=== PATIENT | female | born 1960 | race Two or more races ===

== ENCOUNTER 2019-03-10 07:21 | Emergency (ER) | payer MEDICAID ==
[~2019-03-10] VITALS: Ht 165.1 cm; Wt 105.7 kg
[2019-03-10 07:27] VITALS: BP 157/77; Ht 165.1 cm; Wt 105.7 kg
[2019-03-10 08:34] LABS: PLATELET COUNT 244 x10^3mcL (130-400); RED CELL DISTRIBUTION WIDTH 13.1 % (11.5-14.5)
[2019-03-10 08:35] LABS: BASOPHIL % 0.3 % (0-2)
[2019-03-10 08:48] LABS: CHLORIDE SERUM 104 mmol/L (98-107); POTASSIUM SERUM 4.6 mmol/L (3.5-5.1); SODIUM SERUM 140 mmol/L (136-145)
[2019-03-10 08:49] LABS: ALBUMIN 3.3 g/dL (3.4-5.0); ALKALINE PHOSPHATASE 80 U/L (46-116); ALT/SGPT 29 U/L (14-59); AST/SGOT 25 U/L (15-37); BILIRUBIN TOTAL 0.45 mg/dL (0.20-1.00); CALCIUM 8.7 mg/dL (8.5-10.1); CARBON DIOXIDE 28.4 mmol/L (21-32); CREATININE SERUM 0.7 mg/dL (0.6-1.0); GFR1 > 60 mL/min; GLUCOSE SERUM 108 mg/dL (74-106); LIPASE 118 IU/L (73-393); TOTAL PROTEIN, SERUM 6.8 g/dL (6.4-8.2)
[2019-03-12] MEDS ORDERED: ACID REDUCER20 MG PO (08:51)
== END 2019-03-10 09:55 | disposition home or self-care (01) ==
LOC: ED 07:21
PROVIDERS: Emergency Medicine
DX: K57.92 Diverticulitis of intestine, part unspecified, without perforation or abscess without bleeding (principal); J45.909 Unspecified asthma, uncomplicated; Z88.6 Allergy status to analgesic agent
CPT/HCPCS: J1885; J2405; J7030

== ENCOUNTER 2019-03-12 07:21 | Inpatient (IN) | payer MEDICAID ==
[~2019-03-12] VITALS: Ht 165.1 cm; Wt 105.7 kg
[2019-03-12 08:29] LABS: CARBON DIOXIDE 26.2 mmol/L (21-32); CHLORIDE SERUM 102 mmol/L (98-107); CREATININE SERUM 0.9 mg/dL (0.6-1.0); GFR1 > 60 mL/min; GLUCOSE SERUM 144 mg/dL (74-106); POTASSIUM SERUM 3.5 mmol/L (3.5-5.1); SODIUM SERUM 138 mmol/L (136-145)
[2019-03-12 08:30] LABS: ALBUMIN 3.3 g/dL (3.4-5.0); ALT/SGPT 29 U/L (14-59); AST/SGOT 14 U/L (15-37); TOTAL PROTEIN, SERUM 7.7 g/dL (6.4-8.2)
[2019-03-12 08:31] LABS: ALKALINE PHOSPHATASE 85 U/L (46-116); LIPASE 190 IU/L (73-393)
[2019-03-12 08:39] LABS: BASOPHIL % 0.1 % (0-2); PLATELET COUNT 289 x10^3mcL (130-400); RED CELL DISTRIBUTION WIDTH 13.1 % (11.5-14.5)
[2019-03-12] MEDS ORDERED: FLAGYL500 MG PO (08:50)
[2019-03-12] MEDS ORDERED: CIPRO500 MG PO (08:50)
[2019-03-12] MEDS ORDERED: OMEPRAZOLE MAGN20 M1 PO (08:51)
[2019-03-12 11:22] VITALS: BP 123/78
[2019-03-12 11:30] VITALS: BP 123/78
[2019-03-12 11:49] LABS: MAGNESIUM 1.9 mg/dL (1.8-2.4); PHOSPHOROUS 3.1 mg/dL (2.5-4.9)
[2019-03-12 12:21] LABS: T4(THYROXINE) 8.4 ug/dL (4.7-13.3)
[2019-03-12 12:22] LABS: FREE T4 1.04 ng/dL (0.76-1.46); FREE THYROXINE INDEX 2.9 ug/dL (1.4-4.5)
[2019-03-12 12:46] LABS: T3 TOTAL 0.95 ng/mL
[2019-03-12 15:55] VITALS: BP 126/71
[2019-03-12 20:25] VITALS: BP 100/43
[2019-03-13 05:42] VITALS: BP 93/41
[2019-03-13 06:36] LABS: BASOPHIL % 0.2 % (0-2); PLATELET COUNT 276 x10^3mcL (130-400); RED CELL DISTRIBUTION WIDTH 12.6 % (11.5-14.5)
[2019-03-13 07:17] LABS: CALCIUM 8.5 mg/dL (8.5-10.1); CARBON DIOXIDE 30.1 mmol/L (21-32); CHLORIDE SERUM 103 mmol/L (98-107); CREATININE SERUM 0.7 mg/dL (0.6-1.0); GFR1 > 60 mL/min; GLUCOSE SERUM 95 mg/dL (74-106); POTASSIUM SERUM 3.4 mmol/L (3.5-5.1); SODIUM SERUM 138 mmol/L (136-145)
[2019-03-13 08:11] VITALS: BP 116/55
[2019-03-13 12:10] VITALS: BP 128/59
[2019-03-13 16:19] VITALS: BP 112/58
[2019-03-13 20:09] VITALS: BP 125/52
[2019-03-14 05:46] VITALS: BP 102/46
[2019-03-14 06:13] LABS: BASOPHIL % 0.3 % (0-2); PLATELET COUNT 292 x10^3mcL (130-400); RED CELL DISTRIBUTION WIDTH 12.9 % (11.5-14.5)
[2019-03-14 07:46] LABS: CALCIUM 8.6 mg/dL (8.5-10.1); CARBON DIOXIDE 28.5 mmol/L (21-32); CHLORIDE SERUM 105 mmol/L (98-107); CREATININE SERUM 0.8 mg/dL (0.6-1.0); GFR1 > 60 mL/min; GLUCOSE SERUM 96 mg/dL (74-106); POTASSIUM SERUM 3.4 mmol/L (3.5-5.1); SODIUM SERUM 141 mmol/L (136-145)
[2019-03-14 08:23] VITALS: BP 105/49
[2019-03-14 12:32] VITALS: BP 94/45
[2019-03-14 16:52] VITALS: BP 114/50
[2019-03-14 19:20] VITALS: BP 119/59
[2019-03-15 05:33] VITALS: BP 116/59
[2019-03-15 06:02] LABS: BASOPHIL % 0.3 % (0-2); PLATELET COUNT 312 x10^3mcL (130-400); RED CELL DISTRIBUTION WIDTH 13.1 % (11.5-14.5)
[2019-03-15 06:50] LABS: CALCIUM 8.6 mg/dL (8.5-10.1); CARBON DIOXIDE 29.9 mmol/L (21-32); CHLORIDE SERUM 106 mmol/L (98-107); CREATININE SERUM 0.8 mg/dL (0.6-1.0); GFR1 > 60 mL/min; GLUCOSE SERUM 94 mg/dL (74-106); POTASSIUM SERUM 3.4 mmol/L (3.5-5.1); SODIUM SERUM 141 mmol/L (136-145)
[2019-03-15 09:10] VITALS: BP 125/79
[2019-03-15 12:36] VITALS: BP 113/53
[2019-03-15 17:40] VITALS: BP 111/59
[2019-03-15 21:02] VITALS: BP 108/52
[2019-03-16 06:03] VITALS: BP 123/69
[2019-03-16 06:41] LABS: BASOPHIL % 0.3 % (0-2); PLATELET COUNT 378 x10^3mcL (130-400)
[2019-03-16 06:44] LABS: CALCIUM 9.3 mg/dL (8.5-10.1); CARBON DIOXIDE 27.3 mmol/L (21-32); CHLORIDE SERUM 105 mmol/L (98-107); CREATININE SERUM 0.9 mg/dL (0.6-1.0); GFR1 > 60 mL/min; GLUCOSE SERUM 93 mg/dL (74-106); POTASSIUM SERUM 3.7 mmol/L (3.5-5.1); SODIUM SERUM 141 mmol/L (136-145)
[2019-03-16 09:12] VITALS: BP 112/78
[2019-03-16 13:11] VITALS: BP 133/75
[2019-03-16] MEDS ORDERED: ACID REDUCER20 MG PO (13:11)
[2019-03-16 13:48] VITALS: BP 133/75
[2019-03-16 14:09] VITALS: BP 149/83
== END 2019-03-16 15:10 | disposition home or self-care (01) | DRG 720 ==
LOC: ED 07:21 → MU 10:12
PROVIDERS: Emergency Medicine; Internal Medicine Gastroenterology; ADMIT Student in an Organized Health Care Education/Training Program
PROC: 0DJD8ZZ Inspection of Lower Intestinal Tract, Via Natural or Artificial Opening Endoscopic (ICD-10-PCS; principal; 2019-03-16 08:00)
DX: A41.9 Sepsis, unspecified organism (principal); K57.32 Diverticulitis of large intestine without perforation or abscess without bleeding; D72.829 Elevated white blood cell count, unspecified; J45.909 Unspecified asthma, uncomplicated; K59.00 Constipation, unspecified; E66.9 Obesity, unspecified
CPT/HCPCS: 45378; 84439; G0378; J1200; J1610; J2250; J2270; J2310; J2405; J2543; J2765; J3010; J3490; J7030; Q0092